=== PATIENT | male | born 1990 | race Caucasian/White ===

== ENCOUNTER 2024-07-01 12:02 | Outpatient (CLI) | payer BC, SELFPAY ==
--- NOTE | ~2024-07-01 | XR_ITS ---
Left wrist Technique: PA, oblique, lateral, and ulnar deviation views were obtained. Clinical History: De Quervain's tenosynovitis Findings: No acute fracture or dislocation is seen. Osseous alignment is anatomic. Joint spaces are p reserved. Soft tissues are unremarkable. Impression: Unremarkable left wrist radiographs. Reviewed, dictated and finalized at location . Impression: Unremarkable left wrist radiographs.
--- OUTSIDE RECORDS SUMMARY | 2024-07-01 13:29 | XMS_ITS | Clinical Summary ---
Author Organization [facility] Address [address] [place] [address] Care Team Providers Care Guide Delegate Name Role Phone Unavailable Primary Care Provider Unavailabl e Source Comments [facility],non-owned Affiliates and Associated Physician Practices is amultiple site organization consisting of ambulatory clinics and hospital sitesin [place], [place], [place] and [place]. This disclosure is being madepursuant to the Care Everywhere program and may not contain all information available regarding this patient. Last updated 17.[facility] [employer] Social History Tobacco Use Types Packs/Day Years Used Date Smoking Tobacco: Never Assessed Sex and Gender Information Value Date Recorded Sex Assigned at Not on file Gender Identity Not on file Sexual Orientation Not on file Plan of Treatment Health Maintenance Due Date Last Done Comments HIV SCREENING 10/11/2006 HEPATITIS C SCREENING 10/07/2009 DTAP/TDAP/TD VACCINES (1 - Tdap) 10/11/2010 HEPATITIS B VACCINE (1 of 3 - 19+ 3-dose series) 10/11/2010 COVID-19 VACCINE (1 - 2023-2 5 season) 2023 DEPRESSION SCREENING 04/01/2024 INFLUENZA VACCINE (Season Ended) 2024 ZOSTER VACCINE (1 of 2) 10/11/2041 HIB VACCINE Aged Out No longer eligi ble based on patient's age to complete this topic HPV VACCINE Aged Out No longer eligi ble based on patient's age to complete this topic MENINGOCOCCAL (Group B) VACC INE SHARED DECISION-MAKING Aged Out No longer eligibl e based on patient's age to complete this topic MENINGOCOCCAL GROUPS A/C/Y/W VACCINE Aged Out No longer eligible b ased on patient's age to complete this topic PNEUMOCOCCAL VACCINE Aged Out No long er eligible based on patient's age to complete this topic
--- OUTSIDE RECORDS SUMMARY | 2024-07-01 13:29 | XMS_ITS | Referral Summary ---
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 [id number] [id number] Care Teams Booster Assembler Relationship Specialty Start Date End Date Tonie Ulloa PA PCP - General Physician Welding Instructor 04/13/23
--- OUTSIDE RECORDS SUMMARY | 2024-07-01 13:29 | XMS_ITS | Clinical Summary ---
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 Gender Identity Not on file Sexual Orientation Not on file Plan of Treatment Health Maintenance Due Date Last Done Comments Depression Screening 1991 Hepatitis C Screening 1991 Varicella Vaccines (1 of 2 - 13+ 2-dose series) 10/11/2004 Regular Well Visit/Exam 18-64 10/11/2009 DTaP/Tdap/Td Vaccine (8 - Td or Tdap) 12/30/2022 12/30/2012, 10/19/2005, 06/03/1998, Additional history exists Covid-19 Vaccine (2023- season) 2023 03/20/2021, 08/30/2020, 08/08/2020 Influenza Vaccine (#1) 2023 01/20/2018, 2003 Hepatitis B Screening Completed 10/19/2005 , 07/08/1992, 1991, Additional history exists HPV Vaccines Aged Out No longer eligi ble based on patient's age to complete this topic Pneumococcal vaccine <65 Aged Out No longer eligible based on patient's age to complete this topic Insurance [facility] ACCESS Care Teams Lifestyle Block Farmer Relationship Specialty Start Date End Date Tonie Ulloa PA PCP - General Physician Marble Carver 04/13/23
--- OUTSIDE RECORDS SUMMARY | 2024-07-01 13:29 | XMS_ITS | Continuity of Care Document ---
Author Name [facility] Organization [facility] Care Team Providers Care Philanthropy Officer Name Role Phone [facility] Unavailable Unavailable Problems Combined list of problems from Department of Defense and Veterans Affairs facilities. It does not include entries that were removed or entered in error. Problem Status Onset Date Problem Type Date of Resolution Comments Source CASE MANAGEMENT CONTINUE Active Condition Unknown Organization Medications Combined list of outpatient medications from Department of Defense and Veterans Affairs facilities.Medications provided include 1) outpatient medications from the last 15 months, and 2) patient-reported medications. Medication Details Route Status Patient Instructions Prescription Expires Prescription Number Last Dispense Date Ordering Provider Order Date Order Qty Source ibuprofen 600 mg oral tablet tabs, Oral, every 6 hr, PRN pain, breakthr ough, 0 total refill(s ), Maintena nce Oral (given by mouth) Discont inued 01/04/20172016 0127C-[facility] melatonin 3 mg oral tablet 3 tabs, Oral, every day at bedtime, PRN as needed for insomnia , # 60 tabs, 0 total refill(s ), Maintena nce Oral (given by mouth) Discont inued 01/04/20172016 60.0 [address] [facility] multivitami n adult, oral tablet 1 tabs, Oral, Daily, # 90 tabs, 0 total refill(s ), Maintena nce Oral (given by mouth) Discont inued 01/04/20172016 90.0 [address] [facility] Viagra 25 mg oral tablet 1 tabs, Oral, Daily, 1 hour before sexual activity , # 12 tabs, 0 total refill(s ), Maintena nce, [facility] pharmacy dispense (Rx) Oral (given by mouth) Discont inued 01/04/20172016 12.0 [address] [facility] Immunizations Combined list of available immunizations from the Department of Defense and Veterans Affairs facilities. Immunization Series Date Given Administered By Site Reaction Lot Number CVX Code Drug Technical Sales Manager Status Comments Source influenza, seasonal, injectable-pf 2015 [id number] Seqirus complet ed influenza , seasonal, injectabl e-pf 02/08/16 [facility] influenza, seasonal, injectable-pf 2014 [id number] 140 CSL Behring complet ed influenza , seasonal, injectabl e-pf 03/07/15 Given [facility] y [facility] yellow fever vaccine 2014 UNK 37 sanofi pasteur complet ed yellow fever vaccine 01/15/15 Given [facility] influenza virus vaccine,split 2013 zzLef t Arm [id number] GlaxoSmithKli ne complet ed influenza virus vaccine,s plit 01/22/14 Given [facility] typhoid Vi capsular polysaccharid e vac 2013 zzLef t Arm [id number] sanofi pasteur complet ed typhoid Vi capsular polysacch aride vac 11/12/13 Given [facility] hepatitis B adult vaccine 2013 zzRig ht Arm [id number] 43 GlaxoSmithKli ne complet ed hepatitis B adult vaccine 11/05/13 Given [facility] hepatitis B adult vaccine 2012 zzLef t Arm [id number] 43 GlaxoSmithKli ne complet ed hepatitis B adult vaccine 02/11/13 Given [facility] poliovirus vaccine, inactivated 2012 zzLef t Arm [id number] sanofi pasteur complet ed polioviru s vaccine, inactivat ed 02/11/13 Given [facility] adenovirus vaccine, live 2012 [id number] Unknown complet ed adenoviru s vaccine, live 01/05/13 Given [facility] tetanus, diphtheria, acellular pertu is 2012 zzRig ht Arm [id number] 115 GlaxoSmithKli ne complet ed tetanus, diphtheri a, acellular pertussis 01/05/13 Given [facility] meningococcal A,C,Y,W-135 (MCV4P) 2012 zzL t Arm [id number] sanofi pasteur complet ed meningoco ccal A,C,Y,W-1 35 (MCV4P) 01/05/13 Given [facility] influenza virus vaccine, live 2012 [id number] [employer] [facility] t ed influenza virus vaccine, live 01/05/13 Given [facility] hepatitis B adult vaccine [facility] [id number] 43 Finco pr complet ed hepatitis B adult vaccine 01/05/13 Given [facility] Results Combined list of recent chemistry, hematology and other laboratory results from Department of Defense and Veterans Affairs, ranging from 15 months to all on record, depending upon the facility. Order Name Results Value Reference Range Date Interpretation Specimen Comments Source Immunolog y/Serolog y Mumps Ab IgG LC 23.9 Aunit/mL 11/05 Result Comment: Negative <9.0 Equivocal 9.0 - 10.9 Positive >10.9 A positive result generally indicates past exposure to Mumps virus or previous vaccination . Performed At: [address] [place] [address] [id number] Scar Pitts MD Ph:[phone] [address]A-N [facility] Molecular Infectiou s Disease GC NAAT.EPI NEGATIVE 11/05 Result Comment: INTERPRETAT ION(S): NAAT = Nucleic acid amplificati on test A positive result indicates that DNA of Chlamydia trachomatis (CT) and/or Neisseria gonorrhoeae (GC) is present in the specimen tested and strongly supports a diagnosis of chlamydial/ gonorrheal infection. A negative result indicates that DNA for CT and/or GC was not detected in the specimen. The performance of this assay has not been evaluated in adolescents less than 14 years of age. This report is intended for use in clinical monitoring or management of patients; it is not intended for use in medico-lega l application s. The assay has not been evaluated with patients who are currently being treated with antimicrobi al agents active against CT or GC as well as patients with a history of hysterectom y. In general, this assay should not be used to assess therapeutic success or failure since nucleic acids from these organisms may persist for 3 weeks or more following antimicrobi al therapy. The predictive value of an assay depends on the prevalence of the disease in any particular population. In settings with a high prevalence of sexually transmitted disease, positive assay results have a high likelihood of being true positives. In settings with a low prevalence of sexually transmitted disease, or in any setting in which a patient's clinical signs and symptoms or risk factors are inconsisten t with gonococcal or chlamydial urogenital infection, positive results should be carefully assessed and the patient retested by other methods (e.g., culture for Neisseria gonorrhoeae ), if appropriate . The prevalence for all specimens tested in this laboratory is 5% for CT and 0.5% for GC. At this prevalence, the [employer] r estimates the overall sensitivity and specificity for CT to be 94.1% and 99.6% respectivel y. For GC the sensitivity and specificity rates are 97.1% and 99.8%. The Positive Predictive Value and the Negative Predictive Value calculated by the [employer] r using the above clinical trial data are 92% and 99.7% for CT and 82% and 100% for GC. Results should be interpreted in conjunction with other laboratory and clinical information . A negative result does not exclude the possibility of infection. Improper specimen collection, concurrent antibiotic therapy, presence of inhibitors, or low numbers of organisms in the specimen may cause false-negat peter results. If clinical indications strongly suggest gonococcal or chlamydial infection, additional specimens should be collected for testing. A result of inconclusiv e indicates that a new specimen should be collected. Testing of urine specimens with this method is not intended to replace a cervical exam and endocervica l sampling for diagnosis of urogenital infection. A first catch urine specimen is acceptable but may detect up to 10% fewer infections when compared with vaginal and endocervica l swab specimens. Methodology : NAAT Notifiable result/cond ition for Local/State department. Notify your local public health immediately for proper notificatio n. Performed by: [facility] [id number] [place] [address] [place] [address] [address] [facility] Molecular Infectiou s Disease Chlamydia NAAT.EPI NEGATIVE 11/05 [address] [facility] Vital Signs Combined list of inpatient and outpatient Vital Signs from Department of Defense and Veterans Affairs, ranging from 12 months to all on record, depending upon the facility. Vital Sign Value Date Comments Source 70 bpm (11/05/16 1:57 PM) 70 bpm 11/05/2016 20:57:00 012-[facility] [place] 36.7 Deg C (11/05/16 1:57 PM) 36.7 [place] 11/05/2016 20:57:00 012C-[facility] [place] 123 123 mm[Hg] 11/05/2016 20:57:00 012 -[facility] [place] 80 80 mm[Hg] 11/05/2016 20:57:00 012 -[facility] 12 br/min (11/05/16 1:57 PM) 12 br/min 11/05/2016 20:57:00 012-[facility] [place] 131 131 mm[Hg] 01/18/2017 21:06:00 [facility] -[facility] [place] 81 81 mm[Hg] 01/18/2017 21:06:00 [facility] -[facility] 98 mmHg (01/18/17 2:06 PM) 98 mm[Hg] 01/18/2017 21:06:00 [facility] 72 bpm (01/18/17 2:06 PM) 72 bpm 01/18/2017 21:06:00 012-[facility] 37.0 Deg C (01/18/17 2:06 PM) 37.0 [place] 01/18/2017 21:06:00 012-[facility] [place] 115 115 mm[Hg] 11/05/2016 16:44:00 012 -[facility] [place] 77 77 mm[Hg] 11/05/2016 16:44:00 012C -[facility] 51 bpm *LOW* (11/05/16 9:44 AM) 51 bpm 11/05/2016 16:44:00 012-[facility] [place] Procedures Combined list of: 1) Procedures from Department of Veterans Affairs facilities going back up to thelast 18 months, not all VA non-surgical procedures are included; 2) All procedures from the Department of Defense facilities. Procedure Procedure Type Code Date Perfomer Comments Sourc e Right ankle tenosynovial chondromatosis excision (second) 07/20/2016 [address] [facility] Right ankle tenosynovial chondromatosis excision 04/09/2016 RIGHT ANKLE 0127C-[facility] Social History Combined list of available smoking, tobacco, and other social history from Department of Defense and Veterans Affairs facilities. Social History Type Response Date Comment Jeffery mullen Smoking Status Never (less than 100 in lifetime) 01/18/2017 Unknown Organization Sex Representation Male (finding) 10/09/2016 Un known Organization Sexual Orientation [facility] Gender identity [facility] Assessment and Plan Combined list of future care activities from Department of Defense and Veterans Affairs facilities (e.g., assessment and plan notes, appointments, orders, and referrals). Additional future care activities may be listed in the Plan of Care section. Result Assessment and Plan Date Source Assessment and Plan Extracted from:Title : FM - Separation physical Author: AUGUST ANDREWS Date: 01/18/17 1. E XAM, OCCUPATIONAL, JAIL OR SEPARATION FROM [employer] SERVICE, LONG F it for separation. See DD Forms 2807 and 2808 Ordered: Periodic Comp Preventive Med 18 to 39 years Est [address] Extracted from:Title: audiogram Author: Bertha Lockhart Date: 01/18/17 Annual monitoring/medical surveillance audiogram for hearing conservation program. Termination audiogram. Audiogram history reviewed. Annual hearing conservation education provided in handout to patient. Audiogram results explained. See hard copy in medical record for original 2216. No STS Extracted from:Title: Ortho - R Knee Author: SERA COVINGTON Date: 01/14/17 1. F ollow-up orthopedic assessment [age]yo M 1 week s/p R knee abscess I&D, doing well. Culture as above, though will not prescribe antibiotics at this time given I&D definitive treatment. -RTD, electronically sumbitted in [employer] -f/u as needed Extracted from:Title: Ortho - R knee abscess Author: SERA COVINGTON Date: 01/08/17 Skin abscess [age]yo M with right knee anterior superficial abscess. Risks, benefits, indications and expectations or treatment options discussed with patient who elected for I&D. -f/u in 1 day with orthodontist for wound packing and teaching -f/u in 1 week for wound check -signs/symptoms of infection discussed with patient and he was instructed to follow-up sooner if any concerns Ordered: Anaerobic and Aerobic Culture [id number] Drain Skin Abscess,Simple/Sngl [id number] Procedure Note: Risks of procedure to include infection, bleeding, damage to neurovascular structures, need for additional procedures, and pain discussed with patient. All questions answered, patient elected to proceed with p chelle a freda informed consent obtained. Site marked with patient participation, time out done with universal safety protocol observed. Betadine swab x6 done and 4mL of lidocaine 1% without epinephrine injected about the abscess. After confirming adequate anesthesia an incision was made directly over the abscess. A scant amount of purulent material was encountered. Culture swab x2 (1 aerobic, 1 anaerobic) w ere obtained. The wound was thoroughly irrigated with sterile irrigation fluid. The wound was then packed with sterile gauze. Patient tolerated the procedure well and ambulated out of the clinic without difficulty. Extracted from:Title: Ortho - R arm Author: SERA COVINGTON Date: 01/03/17 1. S ubcutaneous abscess of knee [age]yo M with R humerus soft tissue mass with findings on MRI with differential of thrombosed vein, inclusion body, lipoma and complex cyst. Discussed treatment options to include diagnostic excision or observation with patient who elected to continue to monitor masses as they have not significantly changed thus far. Patient educated on signs/symptoms of concern. In regards to right knee abscess, US without additional findings. Will plan for I&D in clinic on [id number]. Plan to take patient off LIMDU at that time as well, he will need to follow-up with PCM for evaluation to find him fit for seaparation. 2. M ass of soft tissue of right upper limb Extracted from:Title: Ortho - R ankle Author: SERA COVINGTON Date: 11/06/16 1. 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 Overall improved but still unable to run long distances or on uneven ground. He will continue with PT for strengthening. If begins to worsen will obtain MRI to r/o recurrent disease. In regards to R elbow and humerus, no findings on XR. Will plan to do MRI of R humerus to further evaluate mass. Continue on LIMDU. 2. P ain of right elbow joint 3. M ass of soft tissue of right upper limb Extracted from:Title: FM PHA Author: VIVIAN LAURENT Date: 11/05/16 1. P atient encounter status P TONY completed MH and HCP portions, insomnia controlled otc Ordered: Periodic Comp Preventive Med 18 to 39 years Est 33[address] 2. E rectile dysfunction pt seens fiancee infrequently, out of state. l ikely due to stress of initial ED due to narcotic this has become a self fulfilling concern. offered short course of low dose rx until pt has full confidence again, offered ibhc, but declined Ordered: Periodic Comp Preventive Med 18 to 39 years Est [address] Orders: sildenafil, 1 tabs, Oral, Daily, 1 hour before sexual activity, # 12 tabs, 0 total refill(s), [facility] pharmacy dispense (Rx) [Not filled] 07/01/[address] [place] [address] Functional Status Combined list of recent functional and cognitive assessments recorded at Department of Defense and Veterans Affairs (VA).VA Functional [place] Measurement (FIM) Scale: 1 = Total Assistance (Subject = 0% +), 2 = Maximal Assistance (Subject = 25% +), 3 = Moderate Assistance (Subject = 50% +), 4 = Minimal Assistance (Subject = 75% +), 5 = Supervision, 6 = Modified [place] (Device), 7 = Complete [place] (Timely, Safely). Assessment Date/Time Source Assessment Type Assessment Skill Assessment Score Assessment Details No data available for this section
--- OUTSIDE RECORDS SUMMARY | 2024-07-01 13:29 | XMS_ITS | Clinical Summary ---
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/2004 Immunizations Immunization Administration Dates Next Due DTAP VACCINE 06/03/1998, 7,03/03/1993,1992,03/08/1992,1991 HEP A/HEP B Combined Vaccine 10/19/2005 HIB Vaccine (PRP-T) 03/03/1993, 3,03/08/1992,1991 Hepatitis B Vaccine, Pediatric/adolescent 07/08/1992,1991,1991 Influenza Vaccine, Quadrivalent, PF 01/20/2018 MMR Vaccine 06/03/1998,08/28/1996,03/03/1993 OPV 06/03/1998, 7,08/28/1996,1991,1991 TDAP Vaccine 12/30/2012,10/19/2005 Family History Medical History Relation Name Comments Cancer Mother Relation Name Status Comments Mother Social History Tobacco Use Types Packs/Day Years Used Date Smoking Tobacco: Never Smokeless Tobacco: Never Alcohol Use Standard Drinks/Week Comments No 0 (1 standard drink = 0.6 oz pur e alcohol) Sex and Gender Information Value Date Recorded Sex Assigned at Not on file Legal Sex Male 8:59 PM CDT Gender Identity Not on file Sexual Orientation Not on file Last Filed Vital Signs Vital Sign Reading Time Taken Comments Blood Pressure 118/76 01/31/2018 1:15 PM CDT Pulse 50 01/31/2018 1:15 PM CDT Temperature 36.5 C (97.7 F) 01/31/2018 1:15 PM CDT Respiratory Rate 20 01/31/2018 1:15 PM CDT Oxygen Saturation 98% 01/31/2018 1:15 PM CDT Inhaled Oxygen Concentration - - Weight 74.3 kg (163 lb 12.8 oz) 01/31/2018 1:15 PM CDT Height 167 cm (5' 5.75 ) 01/31/2018 1:15 PM CDT Body Mass Index 26.64 01/31/2018 1:15 PM CDT Plan of Treatment Health Maintenance Due Date Last Done Comments Hepatitis C Virus (HCV) Screening 1991 DTaP/Tdap/Td Immunization (8 - Td or Tdap) 12/30/2022 12/30/2012, 10/19/2005, 06/03/1998, Additional history exists Influenza Immunization (#1) 2023 01/20/2018 SARS-COV-2 Immunization ( season) 2023 03/20/2021, 08/30/2020, 08/08/2020 Respiratory Syncytial Virus (RSV) Immunization (Adult) (1 - 1-dose 75+ series) 10/11/2066 Hepatitis B Immunization Completed 006, 07/08/1992, 1991, Additional history exists Meningococcal Immunization (ACWY) Aged Out No longer eligible based on patient's age to complete this topic Pneumococcal Immunization Combined Aged Out No longer eligible based on patient's age to complete this topic Rotavirus Immunization Aged Out No lo nger eligible based on patient's age to complete this topic Insurance [facility] Care Teams Winder Operator Relationship Specialty Start Date End Date Provider, None [place] PCP - General 01/20/18
== END 2024-07-01 12:03 | disposition home or self-care (01) ==
LOC: ANHIMG 12:08
PROVIDERS: PCP Physician Assistant; Visit Provider Plastic Surgery
DX: M65.4 Radial styloid tenosynovitis [de Quervain] (principal)
CPT/HCPCS: 73110